=== PATIENT | male | born 1975 | race Caucasian/White ===

== ENCOUNTER 2017-10-03 18:12 | Inpatient (IN) | payer MEDICAID ==
[2017-10-03] MEDS ORDERED: LEVETIRACETAM 500 MG TABLET PO ONE (18:30)
[2017-10-03 19:05] LABS: HEMATOCRIT 52.5 % (37.9-51.0); HEMOGLOBIN 17.3 g/dL (13.5-17.0); MEAN CORPUSCULAR HEMOGLOBIN 29.5 pg (27.0-33.4); MEAN CORPUSCULAR HGB CONC 32.9 g/dL (32.0-36.0); MEAN CORPUSCULAR VOLUME 90 fl (80-97); PLATELET COUNT 456 10^3/uL (150-450); RED BLOOD COUNT 5.85 10^6/uL (4.35-5.55); RED CELL DISTRIBUTION WIDTH 14.8 % (11.5-14.0)
[2017-10-03] MEDS ORDERED: NORMAL SALINE 1000 ML 2,000 ML IV ONE (19:16)
[2017-10-03] MEDS ORDERED: ONDANSETRON HCL INJ/PF 4 MG/2 ML SDV IV ONE (19:17)
--- NOTE | 2017-10-03 19:17 | ER Document Report ---
ED Fever - General Stated Complaint: Syncope Time Seen by Provider: 10/03/17 18:26 Notes: Patient is a 41-year-old male with a past medical history of hypertension and morbid obesity who presents after having multiple syncopal episodes at home as well as vomiting and diarrhea. The patient was seen 3 days ago and started on treatment with doxycycline, azithromycin and prednisone for possible pneumonia. 24 hours get the patient began to develop persistent malodorous diarrhea as well as vomiting that has been getting progressively worse since onset. The patient has been unable to tolerate oral intake today. Family reports that when they came home from going out to get him Gatorade to drink he appeared lethargic, pale and diaphoretic. They state that he stood up, walked in the kitchen and then syncopized. They state that they stood him up again and he then again had a repeat syncopal episode although during the second episode he had 20 seconds of tonic-clonic jerking followed by an approximate 5 minute episode of being lethargic but still mumbling. They report that in 10 minutes or less the patient was again speaking normally. History is otherwise limited as patient is very lethargic and hypotensive at the time of my initial history taking and examination - Related Data Allergies/Adverse Reactions: No Known Allergies Allergy (Verified 10/03/17 20:29) Past Medical History - General Information source: Relative Cannot obtain history due to: Unstable vital signs - Social History Smoking Status: Never Smoker Frequency of alcohol use: None Drug Abuse: None Lives with: Family Family History: Reviewed & Not Pertinent Review of Systems - Review of Systems Notes: Constitutional: Negative for fever. HENT: Negative for sore throat. Eyes: Negative for visual changes. Cardiovascular: Negative for chest pain. Positive for syncope Respiratory: Negative for shortness of breath. Gastrointestinal: Positive for vomiting and diarrhea Genitourinary: Negative for dysuria. Musculoskeletal: Negative for back pain. Skin: Negative for rash. Neurological: Negative for headaches, weakness or numbness. 10 point ROS negative except as marked above and in HPI. Physical Exam - Vital signs Vitals: Resp 18 10/03/17 18:41 Interpretation: Hypotensive, Tachycardic Notes: PHYSICAL EXAMINATION: GENERAL: Lethargic, minimally responsive HEAD: Atraumatic, normocephalic. EYES: Pupils equal round and reactive to light, extraocular movements intact, sclera anicteric, conjunctiva are normal. ENT: nares patent, oropharynx clear without exudates. Dry mucous membranes. NECK: Normal range of motion, supple without lymphadenopathy LUNGS: Shallow, rapid respirations. Breath sounds are clear bilaterally HEART: Regular tachycardia without murmurs ABDOMEN: Soft, obese abdomen, nontender, normoactive bowel sounds. No guarding , no rebound. No masses appreciated. EXTREMITIES: Normal range of motion, no pitting or edema. No cyanosis. NEUROLOGICAL: Face symmetric. Tongue protrudes midline. Extraocular motions intact. Pupils are 2 mm and equally reactive. 5 out of 5 strength in both the distal and proximal upper and lower extremities bilaterally. Sensation is grossly intact throughout. PSYCH: Lethargic, but does respond appropriately to all questions SKIN: Cool, pale, poor turgor Course - Re-evaluation Re-evalutation: 10/03/17 19:13 Initial documentation is necessarily related to stroke at the bedside this patient for 30 minutes continuously after he abruptly dropped his blood pressure and became profoundly hypotensive in the 60s on palpation. In summary , I suspect that this patient had a syncopal or near syncopal episode here in the emergency department secondary to hypovolemia from profuse vomiting and diarrhea, concerningly possibly secondary to C. difficile colitis in the setting of taking both doxycycline and azithromycin for reported pneumonia diagnosed at an urgent care. Patient initially presented as having possibly had a seizure. His family the bedside however provides a history much more clear with tonic-clonic jerking in the setting of multiple syncopal episodes at home. 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 The patient had an IV established and 2 L fluid were open wide. We made multiple times to establish a second IV access point but did have difficulty secondary to the polyp secondary to the patient's morbid obesity. After approximately 750 cc of fluid had infused the patient's blood pressure did return to a normal level at 103 on 68. His mental status also began to improve from being obtunded to awake but lethargic. He has no focal neurologic deficits on examination. He has no focal abdominal pain on palpation. Labs are pending. Patient has stooled several times here in the emergency department and C. difficile PCR and cultures have been sent. Will continue to reassess the patient frequently. 10/03/17 19:25 Patient's blood pressure continues to improve currently 113 and 63, in no distress, mental status is also improving. Awaiting laboratories. 10/03/17 20:12 Patient has again become hypotensive 69 and 45. An additional liter of fluid is being started immediately. Labs have returned showing marketed leukocytosis , acute kidney injury. Chest x-ray is clear. Will continue to monitor closely. 10/03/17 20:36 Patient's blood pressure is gradually improving now up to 88 and 63 he is again mentating normally. I have reviewed the remainder of his labs do show prerenal azotemia. He is currently receiving his third liter of fluid. I have discussed this case with Dr. 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 This will be completed per her request. I have begun oral vancomycin. - Vital Signs Vital signs: Temp Pulse Resp BP Pulse Ox 99.3 F 26 H 107/69 93 10/04/17 02:00 10/04/17 03:00 10/04/17 02:31 10/04/17 02:31 - Laboratory Result Diagrams: 10/03/17 18:43 10/03/17 18:43 Laboratory results interpreted by me: 10/03/17 10/03/17 10/03/17 18:43 18:43 18:43 WBC 31.7 H* RBC 5.85 H Hgb 17.3 H Hct 52.5 H RDW 14.8 H Plt Count 456 H Seg Neuts % (Manual) 88 H Lymphocytes % (Manual) 2 L Abs Neuts (Manual) 28.8 H Abs Monocytes (Manual) 2.2 H Carbon Dioxide 20 L Anion Gap 21 H BUN 31 H Creatinine 1.92 H Est GFR ( Amer) 46 L Est GFR (Non-Af Amer) 38 L Glucose 151 H Direct Bilirubin 0.7 H Creatine Kinase 211 H Albumin 5.3 H Critical Care Note - Critical Care Note Total time excluding time spent on procedures (mins): 38 Comments: Critical care time spent obtaining history from patient or surrogate, discussions with consultants, development of treatment plan with patient or surrogate, evaluation of patient's response to treatment, examination of patient , ordering and performing treatments and interventions, ordering and review of laboratory studies, re-evaluation of patient's condition, ordering and review of radiographic studies and review of old charts Discharge - Discharge Clinical Impression: Prerenal azotemia, Hypovolemic shock, Vomiting and diarrhea Condition: Fair Disposition: ADMITTED INPATIENT Admitting Provider: Tawana Daniels Unit Admitted: MAYDA
[2017-10-03 19:24] LABS: ALANINE AMINOTRANSFERASE 48 U/L (21-72); ALBUMIN 5.3 g/dL (3.5-5.0); ALKALINE PHOSPHATASE 122 U/L (38-126); ASPARTATE AMINO TRANSFERASE 54 U/L (17-59); BILIRUBIN,DIRECT 0.7 mg/dL (0.0-0.4); BILIRUBIN,TOTAL 1.1 mg/dL (0.2-1.3); BLOOD UREA NITROGEN 31 mg/dL (7-20); CALCIUM 10.1 mg/dL (8.4-10.2); GLUCOSE 151 mg/dL (75-110); TOTAL PROTEIN 8.2 g/dL (6.3-8.2)
[2017-10-03 19:31] LABS: ANION GAP 21 (5-19)
[2017-10-03 19:33] LABS: CARBON DIOXIDE 20 mmol/L (22-30); CHLORIDE 103 mmol/L (98-107); POTASSIUM 4.4 mmol/L (3.6-5.0); SODIUM 144.1 mmol/L (137-145)
[2017-10-03 19:42] LABS: ABSOLUTE LYMPHOCYTES# (MANUAL) 0.6 10^3/uL (0.5-4.7); ABSOLUTE MONOCYTES # (MANUAL) 2.2 10^3/uL (0.1-1.4); ABSOLUTE NEUTROPHILS# (MANUAL) 28.8 10^3/uL (1.7-8.2); BAND NEUTROPHILS % (MANUAL) 3 % (3-5); BASOPHILS % (MANUAL) 0 % (0-2); EOSINOPHILS % (MANUAL) 0 % (0-6); LYMPHOCYTES % (MANUAL) 2 % (13-45); MONOCYTES % (MANUAL) 7 % (3-13); SEGMENTED NEUTROPHILS % (MAN) 88 % (42-78); TOTAL CELLS COUNTED 100; TOXIC GRANULATION SLIGHT
[2017-10-03 19:43] LABS: ANISOCYTOSIS SLIGHT; PLATELET COMMENT INCREASED
[2017-10-03 19:46] LABS: WHITE BLOOD COUNT 31.7 10^3/uL (4.0-10.5)
[2017-10-03 20:04] LABS: CREATINE KINASE 211 U/L (55-170)
--- NOTE | 2017-10-03 20:05 | RADIOLOGY REPORT (SQ) ---
EXAM DESCRIPTION: CHEST SINGLE VIEW COMPLETED DATE/TIME: 10/03/2017 7:55 pm REASON FOR STUDY: hx of pneumonia COMPARISON: None. EXAM PARAMETERS: NUMBER OF VIEWS: One view. TECHNIQUE: Single frontal radiographic view of the chest acquired. RADIATION DOSE: NA LIMITATIONS: None. FINDINGS: LUNGS AND PLEURA: No opacities, masses or pneumothorax. No pleural effusion. MEDIASTINUM AND HILAR STRUCTURES: No masses. Contour normal. HEART AND VASCULAR STRUCTURES: Heart normal in size. Normal vasculature. BONES: No acute findings. HARDWARE: None in the chest. OTHER: No other significant finding. IMPRESSION: NO ACUTE RADIOGRAPHIC FINDING IN THE CHEST. TECHNICAL DOCUMENTATION: JOB ID: [id number] [employer]- All Rights Reserved Reading location - IP/workstation name: [email or web address]
[2017-10-03] MEDS ORDERED: NORMAL SALINE 1000 ML 1,000 ML IV ONE ×2 (20:12→21:18)
[2017-10-03] MEDS ORDERED: VANCOMYCIN HCL INJ 500 MG VIAL PO ONE ×2 (20:31→21:30)
[2017-10-03] MEDS ORDERED: ALBUTEROL SULFATE 0.083% NEB 2.5 MG/3 ML AMPUL NEB PRN (21:01)
[2017-10-03] MEDS ORDERED: PROMETHAZINE HCL INJ 25 MG/1 ML VIAL IV PRN (21:01)
[2017-10-03] MEDS ORDERED: ACETAMINOPHEN 325 MG TABLET PO PRN (21:01)
[2017-10-03] MEDS ORDERED: NOREPINEPHRINE BITARTRATE INJ/PF 4 MG/4 ML SDV IV ONE (21:19)
[2017-10-03] MEDS ORDERED: DEXTROSE 5%-WATER 250 ML with NOREPINEPHRINE BITARTRATE 4 MG IV PRN ×2 (21:34)
[2017-10-03] MEDS ORDERED: VANCOMYCIN HCL 0 MG in DEXTROSE 5%-WATER 250 ML IV NR (21:45)
[2017-10-03] MEDS: NORMAL SALINE 1000 ML 1,000 ML IV PRN (22:47)
[2017-10-03] MEDS: VANCOMYCIN HCL 1,250 MG in DEXTROSE 5%-WATER 250 ML IV SCH (22:48)
[2017-10-03] MEDS: HEPARIN SOD (PORCINE) 5,000 UNIT/ML 1 ML SYRINGE SUBCUT SCH (22:50)
[2017-10-03] MEDS: PIPERACILLIN SODIUM/TAZOBACTAM 3.375 GM in NORMAL SALINE 100 ML IV SCH (23:59)
[2017-10-04] MEDS ORDERED: VANCOMYCIN HCL INJ 500 MG VIAL PO SCH ×2
--- NOTE | 2017-10-04 00:19 | RADIOLOGY REPORT (SQ) ---
EXAM DESCRIPTION: CT ABD/PELVIS NO ORAL OR IV CLINICAL HISTORY: 41 years Male, leukocytosis, vomiting, diarrhea COMPARISON: None. TECHNIQUE: No contrast. Coronal and sagittal reformat. This exam was performed according to our departmental dose-optimization program, which includes automated exposure control, adjustment of the mA and/or kV according to patient size and/or use of iterative reconstruction technique. FINDINGS: Fluid-filled right and proximal transverse colon suggests nonspecific malabsorption. Mild disc desiccation between the L2 and S1 levels. Small disc bulge L4-L5 and L2-L3. Unenhanced inferior chest, abdominopelvic structures, and musculoskeleton appear otherwise grossly unremarkable. Impression: No acute findings.
[2017-10-04 00:38] LABS: APPEARANCE,URINE CLOUDY; BILIRUBIN,URINE NEGATIVE (NEGATIVE); CALCIUM OXALATE CRYSTALS,URINE FEW /HPF; COLOR,URINE YELLOW; GLUCOSE, URINE NEGATIVE (NEGATIVE); KETONES,URINE NEGATIVE (NEGATIVE); LEUKOCYTE ESTERASE,URINE NEGATIVE (NEGATIVE); NITRITE,URINE NEGATIVE (NEGATIVE); PROTEIN,URINE NEGATIVE (NEGATIVE); URINE SPECIFIC GRAVITY 1.021; UROBILINOGEN,URINE NEGATIVE mg/dL (<2.0)
--- NOTE | 2017-10-04 01:36 | PDOC H&P ---
History of Present Illness Admission Date/PCP: 10/03/17 20:47 Patient complains of: Syncope and collapse 3 episodes. Nausea vomiting and diarrhea since 4 PM. History of Present Illness: HAIM JIMENEZ is a 41 year old male with history of Barett's esophagus was admitted with above-mentioned complaints. The patient was very uncomfortable and provided very limited history. Most of this was obtained from his at bedside. According to his , the patient was having severe cough so he went to urgent care in [place] where he resides on 09/28/2017 and was diagnosed with left lower lobe pneumonia. He was given 1 shot of antibiotics and sent home on oral antibiotics. On 09/30/2017, he came down here to visit his brother. And this afternoon around 4:00P, he started having multiple bouts of nausea/vomiting and several loose bowel movements but no hematemesis, hematochezia or melena have been reported. He also had three syncopal episodes, the first 2 lasted 10-15 minutes per his . And he seemed to have some seizure-like activities when he had his third syncopal episode. That one lasted about 20 minutes before EMS arrived. There was no postictal state reported. There was also no report of any other family member having similar symptoms. The patient currently complains of chest tightness and some shortness of breath , and he said that he had similar chest tightness every time he lost consciousness. In the ED, which was not recorded, heart rate 93, respiratory rate 18, blood pressure 67/28 with oxygen saturation of 97% on room air. His WBC was 31.7 and his hemoglobin was 17.3. A CXr was done which was negative. Stool for C diff was also negative. Abdominal CAT scan still pending. The patient received a total of 4 L of normal saline and 125 mg oral vancomycin x1 for presumed C. difficile colitis prior to stool studies resulting. He also received 500 mg oral Keppra x1. Past Medical History Medical History: Other - According to the patient and based on previous records. Cardiac Medical History: Reports: Hypertension Pulmonary Medical History: Reports: Pneumonia - currently on medication GI Medical History: Reports: Gastroesophageal Reflux Disease Past Surgical History Past Surgical History: Reports: Orthopedic Surgery - Foot surgery on 2016. Right hand surgery. Back surgery x1. Social History Lives with: Family Smoking Status: Never Smoker Frequency of Alcohol Use: None Hx Recreational Drug Use: No - Advance Directive Resuscitation Status: Full Code Family History Parental Family History Reviewed: Yes - Because of her CAD/SC Children Family History Reviewed: No Sibling(s) Family History Reviewed.: Yes Medication/Allergy Home Medications: Unobtainable [Unobtainable] 10/03/17 Allergies/Adverse Reactions: No Known Allergies Allergy (Verified 10/03/17 20:29) Review of Systems ROS unobtainable: Other - Pertinent positives and negatives as detailed in the HPI. Physical Exam Vital Signs: Temp Pulse Resp BP Pulse Ox 97.7 F 19 89/64 L 95 10/03/17 20:00 10/03/17 20:21 10/03/17 20:21 10/03/17 20:21 General appearance: PRESENT: no acute distress, morbidly obese, well-developed Head exam: PRESENT: atraumatic, normocephalic Eye exam: PRESENT: conjunctiva pink, PERRLA. ABSENT: scleral icterus Mouth exam: PRESENT: dry mucosa Neck exam: PRESENT: full ROM. ABSENT: JVD Respiratory exam: PRESENT: decreased breath sounds. ABSENT: rales, rhonchi, wheezes Cardiovascular exam: PRESENT: RRR, +S1, +S2 Pulses: PRESENT: normal dorsalis pedis pul GI/Abdominal exam: PRESENT: normal bowel sounds, soft. ABSENT: distended, rebound, tenderness Rectal exam: PRESENT: deferred Extremities exam: ABSENT: pedal edema Musculoskeletal exam: PRESENT: full ROM Neurological exam: PRESENT: alert, altered, other - limited exam since very uncomfortable. Skin exam: PRESENT: dry, warm. ABSENT: erythema, rash Results Laboratory Results: CBC: WBC 31.7, hemoglobin 17.3, hematocrit 52.5, MCV 90, RDW 14.8, platelets 456. CMP: Sodium 144.1, potassium 4.4, chloride 103, bicarb 20, anion gap 21, BUN 31 , creatinine 1.92, glucose 151. Liver enzymes within normal limits. Troponin negative. UA: negative. C diff: negative. EKG Comments: Twelve-lead EKG, sinus rhythm, ventricular rate 95, Chauncey 0, no acute findings. Impressions: Chest X-Ray 10/03/17 19:34 IMPRESSION: NO ACUTE RADIOGRAPHIC FINDING IN THE CHEST. Assessment & Plan - Diagnosis (1) Shock Is this a current diagnosis for this admission?: Yes Plan: Due to hypovolemic and/or septic, questionable cardiogenic. Chest x-ray, UA and stool for C.diff were negative. Abdominal CAT scan pending. The patient received a total of 4 L of normal saline, will start Levophed and follow-up cultures and lactic acid level. Will start broad coverage antibiotics with vancomycin and Zosyn and follow up cultures. Further managment as mentioned below. (2) Syncope and collapse Is this a current diagnosis for this admission?: Yes Plan: Most likely secondary to hypotension. We will continue management as previously mentioned. We will also cycle cardiac enzymes and check an echocardiogram in a.m. (3) Chest tightness Is this a current diagnosis for this admission?: Yes Plan: The patient has a history of Yu's esophagus per his on an EGD done a year ago. Will continue to cycle cardiac enzymes and follow-up echocardiogram. We will start PPI. (4) ARF (acute renal failure) Qualifiers: Acute renal failure type: unspecified Qualified Code(s): N17.9 - Acute kidney failure, unspecified Is this a current diagnosis for this admission?: Yes Plan: Secondary to prerenal and renal. No baseline creatinine to compare. We will continue IV fluids and monitor kidney function and urine output. (5) Seizure-like activity Is this a current diagnosis for this admission?: Yes Plan: secondary to compulsive syncope rather than seizure disorder. Will monitor for now and check CT head. - Time Time Spent: Greater than 70 Minutes - Inpatient Certification Based on my medical assessment, after consideration of the patient's comorbidities, presenting symptoms, or acuity I expect that the services needed warrant INPATIENT care.: Yes I certify that my determination is in accordance with my understanding of Medicare's requirements for reasonable and necessary INPATIENT services [42 CFR 412.3e].: Yes
[2017-10-04] MEDS ORDERED: MAG HYDROX/AL HYDROX/SIMETH SUSP 30 ML UDCUP PO PRN (03:52)
[2017-10-04] MEDS ORDERED: LORAZEPAM INJ 2 MG/1 ML VIAL IV ONE (03:53)
[2017-10-04 04:05] LABS: HEMATOCRIT 43.8 % (37.9-51.0); MEAN CORPUSCULAR HEMOGLOBIN 29.4 pg (27.0-33.4); MEAN CORPUSCULAR VOLUME 89 fl (80-97); PLATELET COUNT 317 10^3/uL (150-450); RED BLOOD COUNT 4.93 10^6/uL (4.35-5.55); RED CELL DISTRIBUTION WIDTH 14.9 % (11.5-14.0); WHITE BLOOD COUNT 20.2 10^3/uL (4.0-10.5)
[2017-10-04 04:10] LABS: HEMOGLOBIN 14.5 g/dL (13.5-17.0)
[2017-10-04 04:32] LABS: ALANINE AMINOTRANSFERASE 52 U/L (21-72); ALKALINE PHOSPHATASE 81 U/L (38-126); ANION GAP 15 (5-19); ASPARTATE AMINO TRANSFERASE 34 U/L (17-59); BILIRUBIN,DIRECT 0.6 mg/dL (0.0-0.4); BILIRUBIN,TOTAL 1.1 mg/dL (0.2-1.3); BLOOD UREA NITROGEN 32 mg/dL (7-20); CALCIUM 8.8 mg/dL (8.4-10.2); CARBON DIOXIDE 16 mmol/L (22-30); CHLORIDE 113 mmol/L (98-107); GLUCOSE 123 mg/dL (75-110); POTASSIUM 4.9 mmol/L (3.6-5.0); SODIUM 143.6 mmol/L (137-145); TOTAL PROTEIN 6.3 g/dL (6.3-8.2)
[2017-10-04] MEDS: PIPERACILLIN SODIUM/TAZOBACTAM 3.375 GM in NORMAL SALINE 100 ML IV SCH ×4 (05:00→23:44)
[2017-10-04] MEDS: HEPARIN SOD (PORCINE) 5,000 UNIT/ML 1 ML SYRINGE SUBCUT SCH ×3 (05:01→21:43)
[2017-10-04] MEDS: NORMAL SALINE 1000 ML 1,000 ML IV PRN (06:51)
--- NOTE | 2017-10-04 07:33 | EKG REPORT ---
SEVERITY:- NORMAL ECG - SINUS RHYTHM : Confirmed by: Horacio Godoy MD 04-Oct-2017 07:32:51
--- NOTE | 2017-10-04 08:34 | RADIOLOGY REPORT (SQ) ---
EXAM DESCRIPTION: CT HEAD WITHOUT COMPLETED DATE/TIME: 10/04/2017 8:06 am REASON FOR STUDY: syncope COMPARISON: None. TECHNIQUE: Axial images acquired through the brain without intravenous contrast. Images reviewed wi th bone, brain and subdural windows. Images stored on PACS. All CT scanners at this facility use dose modulation, iterative reconstruction, and/or weight based d osing when appropriate to reduce radiation dose to as low as reasonably achievable (ALARA). [facility]: Dose Right [facility]: CareDose [facility]: Dose Right [facility]: Teradose 4D [facility]: Aviasales RADIATION DOSE: CT Rad equipment meets quality standard of care and radiation dose reduction techniq ues were employed. CTDIvol: 64.6 mGy. DLP: 1163 mGy-cm. mGy. LIMITATIONS: None. FINDINGS: VENTRICLES: Normal size and contour. CEREBRUM: No masses. No hemorrhage. No midline shift. No evidence for acute infarction. Normal gra y/white matter differentiation. No areas of low density in the white matter. CEREBELLUM: No masses. No hemorrhage. No alteration of density. No evidence for acute infarction. EXTRAAXIAL SPACES: No fluid collections. No masses. ORBITS AND GLOBE: No intra- or extraconal masses. Normal contour of globe without masses. CALVARIUM: No fracture. PARANASAL SINUSES: No fluid or mucosal thickening. SOFT TISSUES: No mass or hematoma. OTHER: No other significant finding. IMPRESSION: NORMAL BRAIN CT WITHOUT CONTRAST. EVIDENCE OF ACUTE STROKE: NO. COMMENT: Quality ID # [id number]: Final reports with documentation of one or more dose reduction techniques (e.g., Automated exposure control, adjustment of the mA and/or kV according to patient size, use of iterative reconstruction technique) TECHNICAL DOCUMENTATION: JOB ID: [id number] [employer]- All Rights Reserved Reading location - IP/workstation name: [email or web address]
[2017-10-04] MEDS: LANSOPRAZOLE 30 MG TAB.RAP.DR PO SCH (09:18)
--- NOTE | 2017-10-04 10:11 | PDOC PROGRESS REPORT ---
Subjective Progress Note for:: 10/04/17 Subjective:: Patient admitted with hypotension and severe diarrhea. He had recently been diagnosed with pneumonia and treated with antibiotics and was thought to have possible C. difficile colitis however titers have been negative so far. He was so hypotensive that he had to be started on Levophed and so was monitored in the intensive care unit. At the time of my exam he was feeling better and had been off Levophed since 6 AM this morning. His blood pressure has stabilized. He is still having diarrhea. H Reason For Visit: SHOCK Physical Exam Vital Signs: Temp Pulse Resp BP Pulse Ox 98.8 F 104 H 19 121/85 95 10/04/17 08:39 10/04/17 07:59 10/04/17 09:51 10/04/17 09:51 10/04/17 09:51 Intake & Output 10/03/17 10/04/17 10/05/17 06:59 06:59 06:59 Output Total 420 Balance -420 Weight 141.5 kg General appearance: PRESENT: no acute distress, cooperative, morbidly obese Head exam: PRESENT: atraumatic Eye exam: PRESENT: conjunctival injection Ear exam: PRESENT: normal external ear exam Mouth exam: PRESENT: dry mucosa Neck exam: ABSENT: carotid bruit, JVD, lymphadenopathy, thyromegaly Respiratory exam: PRESENT: clear to auscultation leighton. ABSENT: rales, rhonchi, wheezes Cardiovascular exam: PRESENT: +S1, +S2, tachycardia Pulses: PRESENT: normal dorsalis pedis pul GI/Abdominal exam: PRESENT: normal bowel sounds, soft. ABSENT: distended, guarding, mass, organolmegaly, rebound, tenderness Extremities exam: PRESENT: full ROM. ABSENT: calf tenderness, clubbing, pedal edema Psychiatric exam: PRESENT: appropriate affect, normal mood. ABSENT: homicidal ideation, suicidal ideation Results Laboratory Results: 10/04/17 03:45 10/04/17 03:45 10/03/17 10/03/17 10/04/17 21:35 23:55 03:45 WBC 20.2 H RBC 4.93 Hgb 14.5 D Hct 43.8 MCV 89 MCH 29.4 MCHC 33.0 RDW 14.9 H Plt Count 317 Sodium Potassium Chloride Carbon Dioxide Anion Gap BUN Creatinine Est GFR ( Amer) Est GFR (Non-Af Amer) Glucose Lactic Acid 3.9 H Calcium Magnesium Total Bilirubin AST ALT Alkaline Phosphatase Total Protein Albumin Urine Color YELLOW Urine Appearance CLOUDY Urine pH 5.0 Ur Specific Rebuck 1.021 Urine Protein NEGATIVE Urine Glucose (UA) NEGATIVE Urine Ketones NEGATIVE Urine Blood NEGATIVE Urine Nitrite NEGATIVE Ur Leukocyte Esterase NEGATIVE Urine RBC (Auto) 1 10/04/17 10/04/17 10/04/17 03:45 03:45 06:25 WBC RBC Hgb Hct MCV MCH MCHC RDW Plt Count Sodium 143.6 Potassium 4.9 Chloride 113 H Carbon Dioxide 16 L Anion Gap 15 BUN 32 H Creatinine 1.29 H Est GFR ( Amer) > 60 Est GFR (Non-Af Amer) > 60 Glucose 123 H Lactic Acid 1.5 Calcium 8.8 Magnesium 1.7 Total Bilirubin 1.1 AST 34 ALT 52 Alkaline Phosphatase 81 Total Protein 6.3 Albumin 4.0 Urine Color Urine Appearance Urine pH Ur Specific Rebuck Urine Protein Urine Glucose (UA) Urine Ketones Urine Blood Urine Nitrite Ur Leukocyte Esterase Urine RBC (Auto) 10/03/17 10/04/17 21:35 03:45 Troponin I < 0.012 < 0.012 Impressions: Chest X-Ray 10/03/17 19:34 IMPRESSION: NO ACUTE RADIOGRAPHIC FINDING IN THE CHEST. Head CT 10/04/17 00:00 IMPRESSION: NORMAL BRAIN CT WITHOUT CONTRAST. EVIDENCE OF ACUTE STROKE: NO. Assessment & Plan - Time Time Spent with patient: 15-24 minutes Medications reviewed and adjusted accordingly: Yes Anticipated discharge: Home Within: within 48 hours - Inpatient Certification Based on my medical assessment, after consideration of the patient's comorbidities, presenting symptoms, or acuity I expect that the services needed warrant INPATIENT care.: Yes Medical Necessity: Need For IV Fluids, Risk of Complication if Not Cared For in Hospital - Plan Summary Plan Summary: 1.Hypovolemic shock due to intravascular volume depletion. He is also Levophed. Will continue with isotonic saline. 2. Syncope and collapse secondary to hypotension. Follow-up on echocardiogram 3. Chest tightness currently resolved 4. Acute renal failure secondary to intravascular volume depletion. We will continue to follow kidney function 5. Seizure-like activity apparently secondary to compulsive syncope. No prior history of seizures 6. Intractable nausea and vomiting as well as profuse diarrhea. ID is possible that this could be antibiotic related outpatient closed also have a viral gastroenteritis-C. difficile despite the negative titers. We will keep a close eye on days. His white count has improved but will continue to monitor closely. 7. Sepsis secondary to possibly infected diarrhea with tachycardia, hypotension , leukocytosis.
[2017-10-04] MEDS: VANCOMYCIN HCL 1,250 MG in DEXTROSE 5%-WATER 250 ML IV SCH ×2 (10:57→21:46)
--- NOTE | 2017-10-04 12:39 | XCELERA REPORT ---
[address] [address] Transthoracic Echocardiogram Report Name: HAIM JIMENEZ Age: 41 yrs Gender: Male : 1975 Patient Status: Inpatient Patient Location: ICU^608^A Study Date: 10/04/2017 10:51 AM Height: 70 in Weight: 305 lb BSA: 2.5 m2 Procedure: A complete two-dimensional transthoracic echocardiogram was performed (2D, M-mode, spectral and color flow Doppler). The study was technically difficult with many images being suboptimal in quality. Reason For Study: chest pain Ordering Physician: TITI CONTRERAS Performed By: Silvina Mason Interpretation Summary The study was technically difficult with many images being suboptimal in quality. The left ventricular ejection fraction is within normal limits. There is mild concentric left ventricular hypertrophy. The left ventricle is grossly normal size. LV diastolic function could not be adequately assessed. Regional wall motion abnormalities cannot be excluded due to limited visualization. The right ventricular systolic function is normal. The left atrial size is normal. The right atrium is normal. There is no mitral regurgitation noted. There is no mitral valve stenosis. No aortic regurgitation is present. There is no aortic valve stenosis There is no tricuspid stenosis. No tricuspid regurgitation. The aortic root is not well visualized but is probably normal size. The inferior vena cava appeared normal and decreased > 50% with respiration (RAP 5-10 mmHg) There is no pericardial effusion. MMode/2D Measurements & Calculations RVDd: 3.0 cm LVIDd: 4.7 cmFS: 31.5 % Ao root diam: 3.2 cm IVSd: 1.2 cm LVIDs: 3.2 cmEDV(Teich): 103.8 ml LVPWd: 1.2 cmESV(Teich): 42.1 ml Ao root area: 8.3 cm2 EF(Teich): 59.4 % LA dimension: 3.1 cm LVOT diam: 2.2 cm LVOT area: 3.8 cm2 Doppler Measurements & Calculations MV E max salvatore: MV P1/2t max salvatore: Ao V2 max: LV V1 max P.7 cm/sec 74.4 cm/sec 188.5 cm/sec 5.6 mmHg MV A max salvatore: MV P1/2t: 41.7 msec Ao max PG: LV V1 max: 70.2 cm/sec MVA(P1/2t): 5.3 cm2 14.2 mmHg 118.0 cm/sec MV E/A: 1.0 MV dec slope: STEPHANIE(V,D): 2.4 cm2 522.9 cm/sec2 PA V2 max: 86.9 cm/sec PA max P.0 mmHg Left Ventricle The left ventricle is grossly normal size. There is mild concentric left ventricular hypertrophy. The left ventricular ejection fraction is within normal limits. LV diastolic function could not be adequately assessed. Regional wall motion abnormalities cannot be excluded due to limited visualization. Right Ventricle The right ventricle is grossly normal size. The right ventricular systolic function is normal. Atria The right atrium is normal. The left atrial size is normal. Mitral Valve The mitral valve is grossly normal. There is no mitral valve stenosis. There is no mitral regurgitation noted. Aortic Valve The aortic valve is not well visualized secondary to technical limitations. There is no aortic valve stenosis. No aortic regurgitation is present. Tricuspid Valve The tricuspid valve is not well visualized secondary to technical limitations. There is no tricuspid stenosis. No tricuspid regurgitation. Pulmonic Valve The pulmonic valve is not well visualized. Great Vessels The aortic root is not well visualized but is probably normal size. The inferior vena cava appeared normal and decreased > 50% with respiration (RAP 5-10 mmHg). Effusions There is no pericardial effusion. : TITI CONTRERAS > Gege Toscano
[2017-10-04 13:06] LABS: PATH REVIEW PATHOLOGIST REVIEWED
[2017-10-04] MEDS ORDERED: DIPHENHYDRAMINE HCL 50 MG CAPSULE PO SCH (22:00)
[2017-10-04] MEDS ORDERED: CETIRIZINE 10 MG TABLET PO ONE (22:00)
[2017-10-05] MEDS: PIPERACILLIN SODIUM/TAZOBACTAM 3.375 GM in NORMAL SALINE 100 ML IV SCH (05:22)
[2017-10-05] MEDS: HEPARIN SOD (PORCINE) 5,000 UNIT/ML 1 ML SYRINGE SUBCUT SCH (05:24)
[2017-10-05 06:42] LABS: ABSOLUTE EOSINOPHILS # (AUTO) 0.5 10^3/uL (0.0-0.6); ABSOLUTE LYMPHOCYTES (AUTO) 1.9 10^3/uL (0.5-4.7); ABSOLUTE MONOCYTES (AUTO) 0.4 10^3/uL (0.1-1.4); ABSOLUTE NEUT (AUTO) 5.5 10^3/uL (1.7-8.2); BASOPHILS % (AUTO) 0.3 % (0-2); EOSINOPHILS % (AUTO) 5.9 % (0-6); HEMATOCRIT 40.2 % (37.9-51.0); HEMOGLOBIN 13.5 g/dL (13.5-17.0); LYMPHOCYTES % (AUTO) 23.2 % (13-45); MEAN CORPUSCULAR HEMOGLOBIN 29.8 pg (27.0-33.4); MEAN CORPUSCULAR HGB CONC 33.5 g/dL (32.0-36.0); MEAN CORPUSCULAR VOLUME 89 fl (80-97); MONOCYTES % (AUTO) 4.2 % (3-13); PLATELET COUNT 196 10^3/uL (150-450); RED BLOOD COUNT 4.53 10^6/uL (4.35-5.55); RED CELL DISTRIBUTION WIDTH 14.9 % (11.5-14.0); SEGMENTED NEUTROPHILS % (AUTO) 66.4 % (42-78); TOTAL CELLS COUNTED % (AUTO) 100 %; WHITE BLOOD COUNT 8.3 10^3/uL (4.0-10.5)
[2017-10-05 06:56] LABS: ANION GAP 12 (5-19); BLOOD UREA NITROGEN 17 mg/dL (7-20); CALCIUM 8.7 mg/dL (8.4-10.2); CARBON DIOXIDE 20 mmol/L (22-30); CHLORIDE 112 mmol/L (98-107); GLUCOSE 80 mg/dL (75-110); POTASSIUM 4.4 mmol/L (3.6-5.0); SODIUM 143.5 mmol/L (137-145)
[2017-10-05] MEDS: LANSOPRAZOLE 30 MG TAB.RAP.DR PO SCH (08:12)
[2017-10-05] MEDS ORDERED: CETIRIZINE 10 MG TABLET PO SCH (10:00)
[2017-10-05 12:49] VITALS: BP 123/87
[2017-10-05] MEDS ORDERED: AMOXICILLIN TR/POT CLAVULANATE 500-125 MG TAB PO SCH (14:00)
--- NOTE | 2017-10-06 17:37 | PDOC DISCHARGE SUMMARY ---
General - Admit/Disc Date/PCP Admission Date/Primary Care Provider: 10/03/17 20:47 Discharge Date: 10/05/17 - Discharge Diagnosis (1) Sepsis associated hypotension Is this a current diagnosis for this admission?: Yes (2) Gastroenteritis Is this a current diagnosis for this admission?: Yes (3) ARF (acute renal failure) Is this a current diagnosis for this admission?: Yes (4) Chest tightness Is this a current diagnosis for this admission?: Yes (5) Hypovolemic shock Is this a current diagnosis for this admission?: Yes (6) Vomiting and diarrhea Is this a current diagnosis for this admission?: Yes - Additional Information Resuscitation Status: Full Code Discharge Diet: As Tolerated Discharge Activity: Activity As Tolerated Prescriptions: Amox Tr/Potassium Clavulanate [Augmentin "500" Tablet] 1 tab PO Q8 #10 tablet Home Medications: Albuterol Sulfate [Ventolin Hfa] 1 puff IH Q4 10/04/17 Allopurinol [Zyloprim 300 mg Tablet] 300 mg PO DAILY 10/04/17 Armodafinil 250 mg PO DAILY 10/04/17 Aspirin [Aspirin EC] 81 mg PO DAILY 10/04/17 Benzonatate [Tessalon Perle 100 mg Capsule] 200 mg PO Q6 PRN 10/04/17 Cetirizine HCl [Zyrtec 10 mg Tablet] 10 mg PO DAILY 10/04/17 Glycopyrrolate 3 mg PO DAILY 10/04/17 Guaifenesin [Mucinex] 600 mg PO DAILYP PRN 10/04/17 Lisinopril 20 mg PO DAILY 10/04/17 Multivit with Minerals No.55 [Centrum Flavor Burst Adult] 1 tab PO DAILY Omeprazole 40 mg PO DAILY 10/04/17 Prednisone [Deltasone 20 mg Tablet] 20 mg PO Q12 10/04/17 Amox Tr/Potassium Clavulanate [Augmentin "500" Tablet] 1 tab PO Q8 #10 tablet 10/05/17 History of Present Illness Patient complains of: Persistent nausea and vomiting as well as large-volume diarrhea History of Present Illness: HAIM JIMENEZ is a 41 year old male Patient was admitted with nausea and vomiting as well as diarrhea which started abruptly. He was recently treated with doxycycline and Zithromax for what appears to be left lower lobe pneumonia. Hospital Course Hospital Course: Patient was admitted with nausea and vomiting as well as diarrhea which started abruptly. He was recently treated with doxycycline and Zithromax for what appears to be left lower lobe pneumonia. He is actually visiting from [place] and when to go to the hotel here in [facility] patient suddenly started having the symptoms. He was brought to the emergency room where he was found to be hypotensive with initial blood pressure of 67/28 and a white count of 31,000. Clostridium difficile toxin was negative. Patient was treated with IV fluid resuscitation and he is lea cultures have been negative. He was initially on intravenous vancomycin and Zosyn but this had been discontinued and he has been switched to a short course of oral antibiotics to complete his treatment of pneumonia although chest x-ray was negative. Patient likely had gastroenteritis possibly viral or drug-induced secondary to doxycycline. He was initially monitored in the intensive care unit but with stabilization of his blood pressure was moved to the medical floor where he has remained hemodynamically stable and at this time it is felt that he can be discharged home in stable condition. There was a questionable seizure-like activity but this was transient and was felt to be related to his hypotension. Physical Exam Vital Signs: Temp Pulse Resp BP Pulse Ox 97.8 F 97 16 134/94 H 100 10/05/17 11:38 10/05/17 11:38 10/05/17 11:38 10/05/17 11:38 10/05/17 11:38 Intake & Output 10/04/17 10/05/17 10/06/17 06:59 06:59 06:59 Intake Total 2666 Output Total 420 Balance -420 2666 Weight 144.1 kg General appearance: PRESENT: no acute distress, morbidly obese Head exam: PRESENT: atraumatic Eye exam: PRESENT: conjunctiva pink, EOMI, PERRLA. ABSENT: scleral icterus Ear exam: PRESENT: normal external ear exam Neck exam: ABSENT: carotid bruit, JVD, lymphadenopathy, thyromegaly Respiratory exam: PRESENT: clear to auscultation leighton. ABSENT: rales, rhonchi, wheezes Cardiovascular exam: PRESENT: RRR. ABSENT: diastolic murmur, rubs, systolic murmur Pulses: PRESENT: normal dorsalis pedis pul GI/Abdominal exam: PRESENT: normal bowel sounds, soft. ABSENT: distended, guarding, mass, organolmegaly, rebound, tenderness Extremities exam: PRESENT: full ROM. ABSENT: calf tenderness, clubbing, pedal edema Musculoskeletal exam: PRESENT: ambulatory, full ROM Neurological exam: PRESENT: alert, awake, oriented to person, oriented to place , oriented to time, oriented to situation, CN II-XII grossly intact. ABSENT: motor sensory deficit Results Laboratory Results: 10/05/17 05:56 10/05/17 05:56 10/04/17 10/05/17 10/05/17 12:20 05:56 05:56 WBC 8.3 RBC 4.53 Hgb 13.5 Hct 40.2 MCV 89 MCH 29.8 MCHC 33.5 RDW 14.9 H Plt Count 196 Seg Neutrophils % 66.4 Lymphocytes % 23.2 Monocytes % 4.2 Eosinophils % 5.9 Basophils % 0.3 Absolute Neutrophils 5.5 Absolute Lymphocytes 1.9 Absolute Monocytes 0.4 Absolute Eosinophils 0.5 Absolute Basophils 0.0 Sodium 143.5 Potassium 4.4 Chloride 112 H Carbon Dioxide 20 L Anion Gap 12 BUN 17 Creatinine 0.90 Est GFR ( Amer) > 60 Est GFR (Non-Af Amer) > 60 Glucose 80 Lactic Acid 1.7 Calcium 8.7 10/03/17 10/04/17 10/04/17 21:35 03:45 11:03 Troponin I < 0.012 < 0.012 < 0.012 Impressions: Chest X-Ray 10/03/17 19:34 IMPRESSION: NO ACUTE RADIOGRAPHIC FINDING IN THE CHEST. Head CT 10/04/17 00:00 IMPRESSION: NORMAL BRAIN CT WITHOUT CONTRAST. EVIDENCE OF ACUTE STROKE: NO. Qualifiers - * PATEINT BEING DISCHARGED WITH ANY OF THE FOLLOWING DIAGNOSIS?: No Plan Time Spent: Greater than 30 Minutes
== END 2017-10-05 13:42 | disposition home or self-care (01) | DRG 314 ==
LOC: ER 18:12 → EH 20:47 → ICU 10-04 07:45 → 3W 10-04 18:17
PROVIDERS: ADMIT Internal Medicine Geriatric Medicine; ATTEND Internal Medicine Geriatric Medicine
DX: I95.89 Other hypotension (principal); R57.1 Hypovolemic shock; N17.9 Acute kidney failure, unspecified; K52.89 Other specified noninfective gastroenteritis and colitis; R07.89 Other chest pain; I10 Essential (primary) hypertension; K21.9 Gastro-esophageal reflux disease without esophagitis; Z79.82 Long term (current) use of aspirin; Z79.899 Other long term (current) drug therapy
CPT/HCPCS: 36415; 70450; 71045; 74176; 80048; 80053; 81001; 82550; 83605; 83735; 84443; 84484; 85025; 85027; 87040; 87045; 87205; 87493; 93005; 93010; 93306; 94640; 96361; 96374; 99291; J1644; J2060; J2405; J2543; J3370; J3490; J7030; J7060